=== PATIENT | female | born 1940 | race Caucasian/White ===

== ENCOUNTER 2022-04-24 05:40 | Outpatient (REF) | payer SELFPAY ==
[2022-04-24 05:49] LABS: MANUAL DIFF FLAG NO
[2022-04-24 05:54] LABS: Basophils Percent Auto 0.3 % (0-2); Eosinophils Percent Auto 0.3 % (0-4); Hematocrit 40.3 % (37.0-47.0); Imm Gran Abs Auto 0.11 X10*3/uL (0.00-0.03); Imm Gran Pct Auto 1.1 % (0.0-0.4); Lymphocytes Absolute Auto 1.4 X10*3/uL (1.2-4.9); Lymphocytes Percent Auto 14.5 % (20-40); Mean Corpuscular HGB Conc 32.3 g/dl (31.0-35.0); Mean Corpuscular Hemoglobin 26.1 pg (27.0-33.0); Mean Corpuscular Volume 80.8 fL (80.0-98.0); Mean Platelet Volume 10.1 fL (9.4-12.3); Monocytes Absolute Auto 0.9 X10*3/uL (0.1-1.2); Monocytes Percent Auto 9.5 % (2-11); Neutrophils Absolute Auto 7.2 x10*3/uL (2.0-8.3); Neutrophils Percent Auto 74.3 % (45-73); Platelet Count 185 X10*3/uL (160-400); Red Blood Count 4.99 X10*6/uL (4.20-5.50); Red Cell Distribution Width 16.9 % (11.0-16.0); White Blood Count 9.7 X10*3/uL (4.8-10.8)
[2022-04-24 06:26] LABS: Alanine Aminotransferase 32 U/L (0-31); Albumin Level 3.4 g/dL (3.5-5.0); Alkaline Phosphatase 68 U/L (39-117); Anion Gap 15 (12-20); Aspartate Amino Transferase 19 U/L (5-31); Bilirubin Total 0.7 mg/dL (0.0-1.0); Blood Urea Nitrogen 22 mg/dL (9-16); Carbon Dioxide 22 mmol/L (22-29); Chloride 103 mmol/L (96-108); Estimated Glomerular Filt Rate > 60; Glucose Random 267 mg/dL (60-115); Potassium 4.4 mmol/L (3.3-5.1); Sodium 136 mmol/L (135-145); Total Protein 5.4 g/dL (6.5-8.0)
== END 2022-04-24 05:41 | disposition home or self-care (01) ==
LOC: HO.MMNH2L 05:40
PROVIDERS: Visit Provider Family Medicine
DX: I50.9 Heart failure, unspecified (principal)
CPT/HCPCS: 36415; 80053; 85025